=== PATIENT | female | born 1970 | race Caucasian/White ===

== ENCOUNTER → 2017-06-04 | Outpatient (CLI) | payer OTHER ==
[~2017-06-04] MED LIST: ADVIL100 MG PO; ASPI325EC PO; Bactrim 400-801 EACH; CHOL10002; CYAN1000; DICMIS75EC; ERGO400 PO; ESTR2 PO; EYE ANTIBIOTIC; HYDACE5; HYDR1TAB94 PO; IBUP800; IBUP800 PO; Norco 5-325 Ta1 EACH PO; PROM25 PO; Percocet 5-3251 EACH PO; VANQUISH; VITAMIN B122500 MC1 PO; Vitamin C100 M1 PO
== END ==
LOC: LAB 14:37 → LAB SHORT 14:37
PROVIDERS: Obstetrics & Gynecology Gynecology
DX: Z12.72 Encounter for screening for malignant neoplasm of vagina (principal)
CPT/HCPCS: 87624; G0123

== ENCOUNTER → 2018-06-10 | Outpatient (CLI) | payer OTHER ==
[2018-06-12 14:07] LABS: HPV 16 Negative (Negative); HPV 18 Negative (Negative); HPV OTHER HR TYPES Negative (Negative)
== END | disposition home or self-care (01) ==
LOC: LAB 19:08 → LAB SHORT 19:08
PROVIDERS: Obstetrics & Gynecology Gynecology
DX: Z12.72 Encounter for screening for malignant neoplasm of vagina (principal)
CPT/HCPCS: 87624; G0123

== ENCOUNTER 2024-03-21 05:02 | Emergency (ER) | payer OTHER ==
[~2024-03-21] VITALS: Ht 167.6 cm; Wt 69.4 kg
[~2024-03-21 05:02] MED LIST changes: +ESTROGEN PATCH
[2024-03-21 05:15] VITALS: BP 140/92
[2024-03-21] MEDS ORDERED: Nitroglycerin 0.4 MG SUBL SL ONE (05:25)
[2024-03-21 05:33] LABS: BASOPHILS ABSOLUTE AUTO 0.06 K/mm3 (0.00-0.23); BASOPHILS PERCENT AUTO 1 % (0-2); EOSINOPHILS ABSOLUTE AUTO 0.23 K/mm3 (0.00-0.68); EOSINOPHILS PERCENT AUTO 2 % (0-6); Hematocrit 36.9 % (33.0-51.0); IMMATURE GRAN ABSOLUTE AUTO 0.03 K/mm3 (0.00-0.10); IMMATURE GRAN PERCENT AUTO 0 % (0-1); LYMPHOCYTES ABSOLUTE AUTO 3.57 K/mm3 (0.84-5.20); LYMPHOCYTES PERCENT AUTO 34 % (21-46); MONOCYTES ABSOLUTE AUTO 0.88 K/mm3 (0.16-1.47); MONOCYTES PERCENT AUTO 8 % (4-13); Mean Corpuscular HGB 30.5 pg (26.0-34.0); Mean Corpuscular HGB Conc 35.2 g/dL (31.5-36.5); Mean Corpuscular Volume 87 fL (80-100); Mean Platelet Volume 10.6 fL (9.1-12.4); NEUTROPHILS ABSOLUTE AUTO 5.74 K/mm3 (1.96-9.15); NEUTROPHILS PERCENT AUTO 55 % (41-73); Platelet Count 209 K/mm3 (150-400); RDW Coefficient Variation 12.2 % (11.7-14.2); RDW Standard Deviation 38.9 fL (35.1-46.3); Red Blood Cell Count 4.26 M/mm3 (3.80-5.20); White Blood Cell Count 10.51 K/mm3 (4.00-11.30)
[2024-03-21 05:58] LABS: Albumin, Blood 3.7 g/dL (3.4-5.0); Bilirubin, Total 0.2 mg/dL (0.1-1.0); Bun/Creatinine Ratio 28.4 (12.0-20.0); Calcium, Blood 8.9 mg/dL (8.5-10.1); Creatinine, Blood 0.63 mg/dL (0.40-1.00); Globulin, Blood 3.6 g/dL (2.2-4.0); Potassium, Blood 3.8 mmol/L (3.5-5.5); Total Protein, Blood 7.3 g/dL (6.4-8.2)
[2024-03-21] MEDS ORDERED: ACET500 PO (08:48)
== END 2024-03-21 09:00 | disposition home or self-care (01) ==
LOC: ER 05:02
PROVIDERS: Emergency Medicine
DX: R07.89 Other chest pain (principal); Z13.21 Encounter for screening for nutritional disorder; Z87.891 Personal history of nicotine dependence
CPT/HCPCS: 71045; 80053; 84484; 85025; 93005; 93010; 99285-25; A9270

== ENCOUNTER 2025-01-17 11:51 | Day surgery (SDC) | payer OTHER ==
[~2025-01-17] VITALS: Ht 167.6 cm; Wt 75.7 kg
[~2025-01-17 11:51] MED LIST changes: +ACET500 PO; +Bupivacaine 0.5% W/EPI 1:200000 SDV 30 ML Vial ONE; +Lidocaine 1%-Epineph 1:100000 20 ML MDV ONE
[2025-01-17] MEDS ORDERED: CeFAZolin Sodium 2,000 MG VIAL ONE (12:02)
[2025-01-17] MEDS ORDERED: NS 500 ML IV ONE (12:20)
--- NOTE | 2025-01-17 12:37 | NUR ---
01/17/25 1237 MELBA TYLER RESTING ON GURNEY, DENIES NEEDS AT THIS TIME. RAILS UP, BRAKES LOCKED, CALL LIGHT IN REACH. SBAR REPORT FROM VANESSA HINTON AT [id number]
[2025-01-17] MEDS ORDERED: Lidocaine 1%-Epineph 1:200000 30 ML SDV ONE (12:44)
[2025-01-17 15:22] VITALS: BP 125/81
== END 2025-01-17 15:35 | disposition home or self-care (01) ==
LOC: ORSCSDS 11:51
PROVIDERS: Orthopaedic Surgery
PROC: 01N50ZZ Release Median Nerve, Open Approach (ICD-10-PCS; principal; 2025-01-17 13:00)
DX: G56.02 Carpal tunnel syndrome, left upper limb (principal); Z87.891 Personal history of nicotine dependence
CPT/HCPCS: J0690; J7120

== ENCOUNTER 2025-01-31 09:26 | Day surgery (SDC) | payer OTHER ==
[~2025-01-31] VITALS: Ht 165.1 cm; Wt 76.2 kg
[~2025-01-31 09:26] MED LIST changes: -Bupivacaine 0.5% W/EPI 1:200000 SDV 30 ML Vial ONE; -Lidocaine 1%-Epineph 1:100000 20 ML MDV ONE
[2025-01-31] MEDS ORDERED: CeFAZolin Sodium 2,000 MG VIAL ONE (09:38)
[2025-01-31] MEDS ORDERED: IBUP200 PO (09:55)
[2025-01-31] MEDS ORDERED: Lysine500 MG PO (09:56)
[2025-01-31] MEDS ORDERED: NS 1,000 ML IV ONE (10:08)
--- NOTE | 2025-01-31 10:31 | NUR ---
01/31/25 1031 MELBA TYLER RESTING ON GURNEY, RAILS UP, BRAKES LOCKED, CALL LIGHT IN REACH. PT DENIES NEEDS/QUESTIONS AT THIS TIME.
--- NOTE | 2025-01-31 11:46 | NUR ---
01/31/25 1146 Lynette Aguilar NURSE MONITOR FOR LOCAL ONLY CASE.
[2025-01-31 15:10] VITALS: BP 101/85
== END 2025-01-31 12:42 | disposition home or self-care (01) ==
LOC: ORSCSDS 09:26
PROVIDERS: Orthopaedic Surgery
PROC: 01N50ZZ Release Median Nerve, Open Approach (ICD-10-PCS; principal; 2025-01-31 11:05)
DX: G56.01 Carpal tunnel syndrome, right upper limb (principal); Z87.891 Personal history of nicotine dependence
CPT/HCPCS: J0690